=== PATIENT | female | born 1985 | race African-American/Black ===

== ENCOUNTER 2017-11-30 05:56 | Inpatient (IN) ==
[2017-11-30] MEDS ORDERED: FAMOTIDINE 20 MG/2 ML VIAL IV ONE (06:11)
[2017-11-30] MEDS ORDERED: CITRIC ACID/SODIUM CITRATE 30 ML UDCUP PO ONE (06:11)
[2017-11-30] MEDS: LACTATED RINGERS 1,000 ML IV SCH (06:30)
[2017-11-30] MEDS ORDERED: OXYTOCIN/LR 20 UNIT/1,000 ML BAG IV ONE (06:35)
[2017-11-30] MEDS ORDERED: BUPIVACAINE SPINAL 0.75% 2 ML AMP SPINAL ONE (06:55)
[2017-11-30 07:17] LABS: Basophils % 0.1 % (0.0-0.8); Eosinophils % 0.3 % (0.00-10.9); Hematocrit 30.1 VOL% (35.7-47.0); Hemoglobin 10.1 GM/DL (12.0-16.0); Immature Granulocytes % 1.5 %; Immature Granulocytes Absolute 0.11 #; Lymphocytes # 1.7 10*3/uL (1.4-4.0); Lymphocytes % 23.2 % (21.3-54.2); Mean Corpuscular HGB Conc 33.6 GM/DL (32-36); Mean Corpuscular Hemoglobin 23 PG (27-34); Mean Platelet Volume 11.1 FL (9.6-12.0); Monocytes # 0.4 10*3/uL (0.11-0.8); Monocytes % 5.2 % (1.7-12.7); Neutrophils # 5.2 10*3/uL (1.4-7.4); Neutrophils % 69.7 % (38.7-73.9); Platelet Count 275 T/CUMM (130-400); Red Blood Count 4.36 MC/CUMM (3.8-5.5); Red Cell Distribution Width 17.9 % (9.3-17.3); White Blood Count 7.5 T/CUMM (4-12)
[2017-11-30 07:38] LABS: Alanine Aminotransferase 19 U/L (13-56); Albumin 2.7 G/DL (3.4-5.0); Alkaline Phosphatase 165 U/L (45-117); Aspartate Amino Transferase 24 U/L (0-37); Bilirubin,Total < 0.39 MG/DL (0.2-1.0); Blood Urea Nitrogen 10 MG/DL (7-18); Calcium 8.8 MG/DL (8.5-10.1); Glucose 79 MG/DL (74-106); Osmolality,Calculated 272.7 MOS/KG (273-304); Potassium 3.7 MMOL/L (3.5-5.1); Sodium 138 MMOL/L (136-145); Total Protein 6.3 G/DL (6.4-8.3)
[2017-11-30] MEDS ORDERED: cefOXitin 3,000 MG in SODIUM CHLORIDE 0.9% 100 ML IV ONE (08:00)
[2017-11-30] MEDS ORDERED: OXYTOCIN/LR 20 UNIT/1,000 ML BAG IV SCH (08:00)
[2017-11-30 09:59] LABS: Apearance,Urine CLEAR (Clear); Bilirubin,Urine Negative (Negative); Blood, Urine Negative (Negative); Glucose,Urine (UA) Negative (Negative); Ketones,Urine Negative (Negative); Mucus,Urine Occasional /LPF (Occasional); Nitrite,Urine Negative (Negative); Protein,Urine Negative; RBC,Urine 2 /HPF (0-4); Squamous Epithelial Cell,Urine Occasional /HPF (0-10); Urine Color Yellow (Yellow); Urine Specific Gravity 1.012 (1.001-1.035); Urine Urobilinogen < 2.0 EU/DL (0.2-1.0); WBC,Urine 1 /HPF (0-6)
[2017-11-30 10:28] LABS: Cord Arterial Blood HCO3 16.7 MMOL/L
[2017-11-30 10:31] LABS: Cord Venous Blood HCO3 18.4 MMOL/L; Cord Venous Blood PCO2 48.3 MMHG; Cord Venous Blood PO2 12.5
[2017-11-30] MEDS ORDERED: PHENYLEPHRINE 1 MG/10 ML SYRINGE IV ONE (10:40)
[2017-11-30] MEDS ORDERED: ONDANSETRON 4 MG/2 ML VIAL ONE (10:41)
[2017-11-30] MEDS ORDERED: MORPHINE 10 MG/10 ML VIAL ONE (10:41)
[2017-11-30 13:25] LABS: HIV Antigen/Antibody Result Nonreactive (Nonreactive)
[2017-11-30] MEDS ORDERED: DEXTROSE 50% 25 GM/50 ML VIAL IV PRN (13:47)
[2017-11-30] MEDS ORDERED: GLUCAGON 1 MG VIAL IM PRN (13:47)
[2017-11-30] MEDS ORDERED: SIMETHICONE CHEW 80 MG TABLET PO PRN (13:47)
[2017-11-30] MEDS ORDERED: INSULIN REGULAR 100 UNIT/ML SUBCUT SCH (13:47)
[2017-11-30] MEDS ORDERED: RHO(D) IMMUNE GLOBULIN 300 MCG SYRINGE IM ONE (13:47)
[2017-11-30] MEDS ORDERED: ONDANSETRON 4 MG/2 ML VIAL IV PRN (13:47)
[2017-11-30] MEDS: IBUPROFEN 800 MG TABLET PO SCH (15:35)
[2017-11-30] MEDS: ceFAZolin 1,000 MG in SYRINGE 1 EACH IV SCH (17:44)
[2017-11-30] MEDS ORDERED: diphenhydrAMINE 50 MG/1 ML VIAL IV PRN (17:50)
[2017-11-30] MEDS: hydrOXYzine HCL 25 MG/1 ML VIAL IM PRN (19:45)
[2017-11-30] MEDS: INSULIN REGULAR 100 UNIT/ML SUBCUT SCH (20:24)
[2017-11-30] MEDS: DOCUSATE SODIUM 100 MG CAPSULE PO SCH (21:08)
[2017-12-01] MEDS: ceFAZolin 1,000 MG in SYRINGE 1 EACH IV SCH (01:50)
[2017-12-01] MEDS ORDERED: ceFAZolin 1,000 MG in SYRINGE 1 EACH IV SCH (02:00)
[2017-12-01] MEDS: IBUPROFEN 800 MG TABLET PO SCH ×4 (02:44→23:57)
[2017-12-01] MEDS: hydrOXYzine HCL 25 MG/1 ML VIAL IM PRN (04:03)
[2017-12-01] MEDS: INSULIN REGULAR 100 UNIT/ML SUBCUT SCH ×3 (05:36→18:27)
[2017-12-01] MEDS: LACTATED RINGERS 1,000 ML IV SCH ×3 (05:36→05:37)
[2017-12-01 07:50] LABS: Basophils % 0.1 % (0.0-0.8); Eosinophils # 0.1 10*3/uL (0.0-0.87); Hematocrit 22.5 VOL% (35.7-47.0); Immature Granulocytes % 1.3 %; Immature Granulocytes Absolute 0.12 #; Lymphocytes # 1.9 10*3/uL (1.4-4.0); Lymphocytes % 19.3 % (21.3-54.2); Mean Corpuscular HGB Conc 32.9 GM/DL (32-36); Mean Corpuscular Hemoglobin 23 PG (27-34); Mean Corpuscular Volume 69.9 FL (87-102); Mean Platelet Volume 10.7 FL (9.6-12.0); Monocytes # 0.6 10*3/uL (0.11-0.8); Monocytes % 6.1 % (1.7-12.7); Neutrophils # 6.9 10*3/uL (1.4-7.4); Neutrophils % 72.2 % (38.7-73.9); Platelet Count 213 T/CUMM (130-400); Red Blood Count 3.22 MC/CUMM (3.8-5.5); Red Cell Distribution Width 18.2 % (9.3-17.3); White Blood Count 9.6 T/CUMM (4-12)
[2017-12-01 07:53] LABS: Hemoglobin 7.4 GM/DL (12.0-16.0)
[2017-12-01] MEDS: MULTIVITAMIN (PRENATAL) TABLET PO SCH (09:38)
[2017-12-01] MEDS: FERROUS SULFATE 325 MG TABLET PO SCH ×2 (09:38→21:38)
[2017-12-01] MEDS: DOCUSATE SODIUM 100 MG CAPSULE PO SCH ×2 (09:38→21:38)
[2017-12-01] MEDS: MAGNESIUM HYDROXIDE SUSP 30 ML UDCUP PO PRN (15:22)
[2017-12-02] MEDS: IBUPROFEN 800 MG TABLET PO SCH ×4 (01:05→22:17)
[2017-12-02] MEDS: INSULIN REGULAR 100 UNIT/ML SUBCUT SCH ×4 (07:30→21:19)
[2017-12-02] MEDS: MULTIVITAMIN (PRENATAL) TABLET PO SCH (09:11)
[2017-12-02] MEDS: FERROUS SULFATE 325 MG TABLET PO SCH ×2 (09:11→21:15)
[2017-12-02] MEDS: DOCUSATE SODIUM 100 MG CAPSULE PO SCH ×2 (09:11→21:14)
[2017-12-02] MEDS: MAGNESIUM HYDROXIDE SUSP 30 ML UDCUP PO PRN (09:12)
[2017-12-03] MEDS: IBUPROFEN 800 MG TABLET PO SCH (06:29)
[2017-12-03 07:21] VITALS: BP 93/50
[2017-12-03] MEDS: INSULIN REGULAR 100 UNIT/ML SUBCUT SCH ×2 (07:30→11:30)
[2017-12-03] MEDS: DOCUSATE SODIUM 100 MG CAPSULE PO SCH (08:56)
[2017-12-03] MEDS: MULTIVITAMIN (PRENATAL) TABLET PO SCH (08:57)
[2017-12-03] MEDS: FERROUS SULFATE 325 MG TABLET PO SCH (08:57)
[2017-12-03] MEDS ORDERED: DIPH/TET/ACEL PERT BOOSTER VACCINE 0.5 ML VIAL IM ONE (10:00)
== END 2017-12-03 13:20 | disposition home or self-care (01) | DRG 765 ==
LOC: N.LDOUT 05:56 → N.LD 05:58 → N.OB 13:33
PROVIDERS: ADMIT Obstetrics & Gynecology; ATTEND Obstetrics & Gynecology
PROC: LDCSECT (ICD-10-PCS; 2017-11-30 08:00)